=== PATIENT | male | born 1990 | race Two or more races ===

== ENCOUNTER 2018-06-23 19:36 | Emergency (ER) | payer SELFPAY ==
[~2018-06-23] VITALS: Ht 175.3 cm; Wt 69.9 kg
[2018-06-23] MEDS ORDERED: NKM (19:49)
[2018-06-23 19:50] VITALS: BP 125/73
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
[2018-06-23] MEDS ORDERED: SILVER SULFADIA50 GM TP (21:21)
[2018-06-23] MEDS ORDERED: IBUPROFEN800 MG ORAL (21:21)
[2018-06-23 22:01] VITALS: BP 112/70
[2018-06-23 22:04] VITALS: BP 112/70
--- NOTE | 2018-06-24 09:03 | Diagnostic Imaging Report ---
Indication: Pain status post injury Technique: XRAY Shoulder Compl L Comparison: None Findings: No acute fracture identified. The glenohumeral and acromioclavicular joints are maintained. Imaged portions of the left lung grossly clear. No radiopaque foreign body identified. Impression: No acute fracture or dislocation.
--- NOTE | 2018-06-24 09:04 | Diagnostic Imaging Report ---
Indication: Pain status post injury Technique: XRAY Forearm 2v L Comparison: None Findings: There is no acute fracture or dislocation. Wrist joint grossly preserved.. Partially imaged elbow joint without obvious abnormality. No definite soft tissue abnormality is appreciated radiographically. No radiopaque foreign body seen. Impression: No acute fracture or dislocation.
--- NOTE | 2018-06-24 09:06 | Diagnostic Imaging Report ---
Indication: Pain status post injury Technique: XRAY Elbow Min 3v L Comparison: None Findings: No definite/displaced acute fracture identified. No evidence of elbow joint effusion. Joint spaces and anatomic alignment preserved. No radiopaque foreign body. IMPRESSION: No definite/displaced acute fracture. No elbow joint effusion.
--- NOTE | 2018-06-24 09:07 | Diagnostic Imaging Report ---
Indication: Pain status post injury Technique: XRAY Wrist Complete L Comparison: None Findings: There is no acute fracture or dislocation. Alignment and joint spaces are preserved. No radiopaque foreign body seen. Impression: No acute fracture or dislocation.
== END 2018-06-23 22:04 | disposition home or self-care (01) ==
LOC: EMR 20:15
DX: S50.812A Abrasion of left forearm, initial encounter (principal); S60.512A Abrasion of left hand, initial encounter; S60.511A Abrasion of right hand, initial encounter; S80.212A Abrasion, left knee, initial encounter; S80.211A Abrasion, right knee, initial encounter; S80.812A Abrasion, left lower leg, initial encounter; S80.811A Abrasion, right lower leg, initial encounter; V28.4XXA Motorcycle driver injured in noncollision transport accident in traffic accident, initial encounter; Y92.89 Other specified places as the place of occurrence of the external cause
CPT/HCPCS: 99284